=== PATIENT | male | born 1995 | race Caucasian/White ===

== ENCOUNTER 2024-10-02 20:48 | Emergency (ER) | payer OTHER, SELFPAY ==
[2024-10-02 20:53] VITALS: BP 142/96
[2024-10-02 22:27] VITALS: BMI 23.6
[2024-10-03] MEDS: DECADRON 10 MG IV (00:06)
[2024-10-03] MEDS: TORADOL 15 MG IV (00:06)
[2024-10-03] MEDS: NSS 1000 IV (00:07)
[2024-10-03 00:21] LABS: Hematocrit 39.7 % (39.0-52.0); Hemoglobin 14.3 g/dL (13.0-18.0); Mean Corpuscular Hgb 29.5 pg (27.0-31.0); Mean Platelet Volume 9.2 fL (7.4-10.4); Platelet Count 259 10^3/uL (130-400); Red Blood Cell Count 4.84 10^6/uL (4.70-6.10); Red Cell Dist. Width 13.2 % (11.5-14.5); White Blood Cell Count 12.4 10^3/uL (4.8-10.8)
--- NOTE | 2024-10-03 00:26 | ED.GENMED ---
Addendum entered and electronically signed by Riley Simmons PA-C 10/05/24 14:01:
Throat culture shows moderate group G strep. He did test positive for mono as well at the time the visit. Will prescribe antibiotics. Amoxicillin called into his pharmacy.
Original Note:
History of Present Illness
General
Chief Complaint: Fever
Source: patient
Exam Limitations: none
Time Seen by Provider: 10/02/24 23:11
Nursing documentation reviewed up to this point in time: agreed with
History of Present Illness
History of Present Illness:
Patient is a 28-year-old male who presents to the emergency department for evaluation of persistent viral symptoms including sore throat, fever, headache. Patient states approximately 2 weeks ago he was diagnosed with hand, foot, mouth disease by
his primary care as he was experiencing fevers, body aches, headaches, and he had sores on his tongue. He also had exposure to family members who were positive for hand, foot, mouth.
He was treating symptoms symptomatically and states some symptoms have improved including mouth sores and bodyaches. However�he reports persistent sore throat which has been worsening over the past few days. He also notes that today he had a
low-grade fever at home prompting visit to the emergency department.He also reports ongoing headaches which do typically respond to Motrin.
He denies any neck pain, abdominal pain, nausea/vomiting. No back pain or urinary symptoms. No dysphagia, productive cough, or shortness of breath.
Review of Systems
Review of Systems
Allergies reviewed?: Yes
All Other Systems: ROS reviewed and negative except as documented in HPI and ROS
Phy Exam
Physical Exam
Physical Exam:
Vitals: Mildly hypertensive and tachycardic on arrival, afebrile
General: Patient is well appearing, no acute distress. Nontoxic appearing
Skin: Warm and dry, no rashes or lesions -specifically no lesions on palms
Head: Normocephalic, atraumatic
Eyes: Sclera nonicteric. EOMs intact. No nystagmus.
Throat: Posterior pharyngeal erythema with mild tonsillar edema and exudates. Uvula midline without evidence of LOGGING [employer]TER [employer]ORER. Protecting airway. No trismus or drooling. Clear speech
Neck: Posterior cervical lymphadenopathy, normal ROM, no cervical spine tenderness, no meningismus
Cardiac: Mildly tachycardic, normal rhythm, no murmurs.
Pulm: Normal respiratory effort, no wheezes, rales, rhonchi heard on exam
.
Abdomen: Abdomen soft and nontender. No palpable organomegaly
Extremities: No evidence of cyanosis or edema
Neuro: AAOx3. Grossly intact.
Psychiatric: Normal affect.
Course
Orders/Labs/Results
Orders:
Orders
10/02/24 23:47
Complete Blood Count/With Diff Urgent
Monotest Urgent
Rapid Strep Group A Urgent
DONNIE Source: Throat/Pharynx
Specimen Description:
Date Specimen was Collected: 10/02/24
Time Specimen was Collected: 23:52
0.9% Sodium Chloride 1000 ml [Nss] 1,000 ml IV BOLUS
Dexamethasone Sod Phosphate [Decadron] 10 mg IV NOW STA
Ketorolac [Toradol] 15 mg IV NOW STA
10/02/24 23:49
Comprehensive Metabolic Panel Urgent
10/03/24 00:02
Manual Differential Urgent
Abnormal Lab Results
10/03/24
00:02
WBC 12.4 H 10^3/uL
(4.8-10.8)
Segmented Neutrophils 37 L %
(42-75)
Lymphocytes (Manual) 57 H %
(20-51)
Total Bilirubin 2.0 H mg/dl
(0.2-1.3)
ALT 67 H U/L
(0-50)
Monoscreen Positive A
(Negative)
10/03/24 00:02
10/03/24 00:02
Vital Signs
Initial and Last Documented VS:
Initial Vital Signs
Temp Pulse Resp BP Pulse Ox
98.3 F 111 20 142/96 98
10/02/24 20:53 10/02/24 20:53 10/02/24 20:53 10/02/24 20:53 10/02/24 20:53
Last Documented Vital Signs
Temp Pulse Resp BP Pulse Ox
98.1 F 78 17 133/75 99
10/03/24 01:03 10/03/24 01:03 10/03/24 01:03 10/03/24 01:03 10/03/24 01:03
MDM/Problems Addressed
Differential Diagnosis Includes:
Not limited to: Viral illness, group A strep pharyngitis, herpangina, peritonsillar abscess, acute dehydration, etc.
MDM/Problems Addressed:
28-year-old male presents with persistent viral symptoms including headache, sore throat, low-grade fevers over the past few weeks. Apparently he was recently diagnosed with hand, foot, mouth and was initially improving until the past 2 days when
symptoms worsened. No new rash, productive cough or shortness of breath. No abdominal pain or vomiting. Patient mildly tachycardic and hypertensive on arrival however improved by my assessment. On exam�patient well-appearing, in no apparent
distress. Cardio/pulmonary assessment unremarkable. Abdomen soft and nontender. He does have palpable posterior cervical lymphadenopathy and pharyngeal erythema with tonsillar exudates. No evidence of LOGGING [employer] on exam today. Overall symptoms most
consistent with viral illness. Given duration�will obtain basic lab work. Will check for mono and send strep swab. Will treat symptoms with fluids, Toradol, Decadron.
Update: Labs reviewed. Mild leukocytosis. Chemistry reveals mild elevation in bilirubin and ALT. Rapid strep negative. Monotest was positive. Acute monoinfection would explain majority of patient's symptoms today. On reassessment�patient's
vital signs have normalized and he remains well-appearing. Discussed mono with patient at length including supportive care at home. Advised NSAIDs for sore throat. Feel stable for discharge home with primary care follow-up. Advise repeat lab
work in 2 to 4 weeks. Lengthy discussion with patient regarding strict return precautions including any signs of significantly worsening sore throat, etc. Patient expressed verbal understanding�stable for discharge home
Chronic conditions affecting care:
N/A
Acute Exacerbation and/or Progression of Chronic Illness:
N/A
*Pulse Oximetry
SaO2: 98
Oxygen Mode of Delivery: Room air
Patient hypoxic: no
*EKG
Interpreted by ED Provider?: NA
*Automotive Specialty Technician Interpretation
Rate: Automotive Specialty Technician- N/A
*Critical Care Note
Total Time (30-74mins, 75-104mins- exclusive of procedures): Not Applicable
ED Attending Note
-
Portions of this chart may have been created with voice recognition software.� Occasional wrong word or��sound alike� substitutions may have occurred due to the inherent limitations of voice recognition software.
Discharge Plan
Departure
Patient Disposition: Home (Routine Discharge)
Date of Disposition: 10/03/24
Time of Disposition: 00:51
Patient with high blood pressure during this ER visit?: Yes
Condition: Good
Discharge Problem:
Mononucleosis
Instructions: BLOOD PRESSURE, Mononucleosis
Prescriptions:
New
dexamethasone 2 mg tablet
10 mg PO ONCE Qty: 5 0RF
Referrals:
Sarah Vargas MD [Family Provider, Internal Medicine] - Follow up in 5-7 days
Activity Restrictions/Additional Instructions:
RETURN TO THE EMERGENCY DEPARTMENT WITH ANY HIGH FEVERS, SIGNIFICANT WORSENING IN SORE THROAT, ANY DIFFICULTY BREATHING/SWALLOWING, INTRACTABLE VOMITING, SEVERE ABDOMINAL PAIN, SEVERE HEADACHE, WORSENING IN CURRENT SYMPTOMS, OR ANY OTHER CONCERNS
- As discussed�your monotest was positive in the emergency department. This is a viral illness and should resolve on its own. A prescription for a steroid has been sent to the pharmacy which you can take in 48 hours if your sore throat
persists/worsens
- Continue to take ibuprofen and/or Tylenol as needed for sore throat/headache. It is important stay well-hydrated and get plenty of rest.
- Your bilirubin and liver function was mildly elevated in the emergency department. Please have this rechecked with your primary care in 2 to 4 weeks to ensure trending down.
- Follow-up with your primary care for further evaluation/management to ensure that your symptoms are improving
Monitor your symptoms closely and return to the emergency department with any acute worsening/new symptoms or any other concerns
Interventions
Interventions:
*Risk Screen - Suicide Last Done: 10/02/24 22:28
*General Assessment Last Done: 10/02/24 20:53
*Neglect/Abuse Screening Last Done: 10/02/24 22:28
*ED- Fall Risk Assessment Last Done: 10/02/24 22:28
*ED COVID-19 Vaccine History Last Done: 10/02/24 22:28
*Nursing Disposition Last Done: 10/03/24 01:03
ED- Neurological Assessment Last Done: 10/02/24 22:28
ED-Skin Assessment Last Done: 10/02/24 22:28
Discharge Date and Time
Discharge Date/Time: 10/03/24 01:05
Print Language: GABONESE
[2024-10-03 00:34] LABS: ALT (SGPT) 67 U/L (0-50); AST (SGOT) 58 U/L (17-59); Albumin 4.7 g/dl (3.5-5.0); Alkaline Phosphatase 122 U/L (38-126); Blood Urea Nitrogen 13 mg/dl (9-20); Calcium 9.5 mg/dl (8.4-10.2); Carbon Dioxide 29 mmol/L (22-30); Chloride 107 mmol/L (98-107); Estimated Creatinine Clearance > 125 ml/min; Glucose 93 mg/dl (70-99); Monotest Positive (Negative); Potassium 4.5 mmol/L (3.5-5.1); Sodium 142 mmol/L (135-145); Total Protein 7.7 g/dl (6.3-8.2); eGFR > 60.00
[2024-10-03 01:03] VITALS: BP 133/75
[2024-10-03 02:21] LABS: Absolute Neutrophils -Man Diff 4.7 10^3/uL (1.4-6.5); Atypical Lymphocytes 3 %; Band Neutrophils 1 % (0-3); Lymphocytes 57 % (20-51); Segmented Neutrophils 37 % (42-75)
[2024-10-03 02:22] LABS: Anisocytosis 1+; Normal RBC Morphology No; Platelets Checked Yes; Total Cells Counted 100
== END 2024-10-03 01:05 | disposition home or self-care (01) ==
LOC: EMR 20:48
PROVIDERS: Physician Assistant; EMERGENCY PHYSICIAN Emergency Medicine; FAMILY PHYSICIAN Internal Medicine
DX: B27.90 Infectious mononucleosis, unspecified without complication (principal); I10 Essential (primary) hypertension
CPT/HCPCS: 99282; 96374; 96375; 96361; 80053; 85025; 86308; 87070; 87147; 87880